=== PATIENT | male | born 1995 | race Two or more races ===

== ENCOUNTER 2021-09-05 23:12 | Emergency (ER) | payer OTHER ==
[~2021-09-05] VITALS: Ht 180.3 cm; Wt 69.9 kg
[2021-09-06] MEDS ORDERED: AZITHROMYCIN500 MG PO (05:46)
[2021-09-06] MEDS ORDERED: PEPCID AC20 MG PO (05:46)
[2021-09-06] MEDS ORDERED: INTESTINEX680 M1 PO (05:46)
[2021-09-06] MEDS ORDERED: ACETAMINOPHEN650 M2 PO (05:46)
== END 2021-09-06 | disposition home or self-care (01) ==
LOC: ER 23:12
DX: B34.9 Viral infection, unspecified (principal); J02.9 Acute pharyngitis, unspecified; R50.9 Fever, unspecified; G43.909 Migraine, unspecified, not intractable, without status migrainosus; R11.0 Nausea; Z20.822 Contact with and (suspected) exposure to COVID-19